=== PATIENT | female | born 1995 | race Caucasian/White ===

== ENCOUNTER 2018-04-21 03:11 | Emergency (ER) | payer BC ==
[2018-04-21] MEDS ORDERED: ONDANSETRON ODT 8 MG TAB SL ONE (03:43)
--- NOTE | 2018-04-21 03:43 | ED.PDOC ---
History of Present Illness - General Chief Complaint: GI Problem Stated Complaint: vomiting and diarrhea Time Seen by Provider: 04/21/18 03:33 Source: patient Exam Limitations: no limitations - History of Present Illness Initial Comments: Shu Silva 23 y/o female came to ER with N/V/D started 8 hours ago,no blood in stool.Exposed to family member with same illness.no chronic medical problem.No abdominal pain.no recent antibiotic use. Timing/Duration: resolved prior to arrival, other - 8 hours ago Severity: moderate Improving Factors: nothing Worsening Factors: eating Associated Symptoms: nausea/vomiting Allergies/Adverse Reactions: Allergies NO KNOWN ALLERGY Allergy (Verified 06/12/12 10:02) Home Medications: Ambulatory Orders Ondansetron [Zofran Odt] 4 mg PO Q8HRS PRN #14 tab 04/21/18 Review of Systems - Review of Systems Constitutional: States: no symptoms reported EENTM: States: no symptoms reported Respiratory: States: no symptoms reported Cardiology: States: no symptoms reported Gastrointestinal/Abdominal: States: see HPI Genitourinary: States: no symptoms reported Past Medical History (General) - Patient Medical History Hx Asthma: No Hx Diabetes: No Surgical History: other - D and E - Vaccination History Hx Influenza Vaccination: No - Social History Hx Tobacco Use: No Hx Alcohol Use: No Hx Substance Use: No Hx Depression: No Feels Threatened In Home Enviroment: No Feels Threatened In a Relationship: No Family Medical History - Family History Father Family History: No Known Physical Exam - Physical Exam General Appearance: Alert, Comfortable, No apparent distress Eye Exam: bilateral normal Ears, Nose, Throat: hearing grossly normal, normal ENT inspection, normal pharynx Neck: supple, normal inspection Respiratory: chest non-tender, lungs clear, normal breath sounds Cardiovascular/Chest: normal peripheral pulses, regular rate, rhythm, no murmur Peripheral Pulses: radial,right: 2+, radial,left: 2+ Gastrointestinal/Abdominal: normal bowel sounds, non tender, soft Back Exam: normal inspection, no CVA tenderness, no vertebral tenderness Extremity: no pedal edema, no calf tenderness Neurologic: alert, oriented x 3 Skin Exam: normal color, warm/dry Progress - Progress Progress: 04/21/18 05:08 Laboratory Results - last 24 hr 12/26/18 12/26/18 12/26/18 03:43 03:43 03:43 WBC 8.1 RBC 5.44 H Hgb 14.9 Hct 44.6 MCV 81.9 MCH 27.3 MCHC 33.5 RDW 14.7 H Plt Count 148 MPV 9.2 Absolute Neuts (auto) 7.50 H Absolute Lymphs (auto) 0.30 L Absolute Monos (auto) 0.30 Absolute Eos (auto) 0.00 Absolute Basos (auto) 0.00 Neutrophils % 92.0 H Lymphocytes % 3.6 L Monocytes % 3.7 Eosinophils % 0.4 L Basophils % 0.3 Sodium 138 Potassium 4.2 Chloride 105 Carbon Dioxide 25 Anion Gap 12.2 BUN 17 Creatinine 0.67 BUN/Creatinine Ratio 25.4 H Random Glucose 127 H Serum Osmolality 278.8 Calcium 9.0 Total Bilirubin 1.2 H AST 14 ALT 23 Alkaline Phosphatase 82 Serum Total Protein 7.2 Albumin 4.2 Globulin 3.0 Albumin/Globulin Ratio 1.4 Urine HCG, Qual Negative - Results/Orders Results/Orders: Vital Signs - 8 hr 04/21/18 03:35 Temperature 97.8 F Pulse Rate [ 88 Right] Respiratory 18 Rate Blood Pressure 114/79 [Left Arm] Discuss all test result with patient Departure - Departure Clinical Impression: Viral gastroenteritis Time of Disposition: 05:09 Disposition: Discharge to Home or Self Care Condition: Good Departure Forms: ED Discharge - Pt. Copy, Patient Portal Self Enrollment Instructions: Viral Gastroenteritis, Viral Gastroenteritis, Adult (DC) Diet: bland diet - until better Avoid greasy ,spicy foods until better Prescriptions: Ondansetron [Zofran Odt] 4 mg PO Q8HRS PRN #14 tab PRN Reason: Vomiting Home Medications: Ambulatory Orders Ondansetron [Zofran Odt] 4 mg PO Q8HRS PRN #14 tab 04/21/18 Additional Instructions: Return to ER as needed if symptoms worsens
[2018-04-21 05:31] VITALS: BP 116/69; TEMP 99; O2SAT 98
== END 2018-04-21 05:31 | disposition home or self-care (01) ==
LOC: ER 03:11
DX: A08.4 Viral intestinal infection, unspecified (principal)